=== PATIENT | female | born 1970 | race Caucasian/White ===

== ENCOUNTER 2022-08-19 08:49 | Day surgery (SDC) | payer BC ==
[2022-08-19] MEDS ORDERED: Sodium Chloride 0.9% 10 ML Syringe FLUSH PRN (08:50)
[2022-08-19] MEDS ORDERED: Lactated Ringers 1,000 ML IV SCH (09:00)
[2022-08-19] MEDS ORDERED: Propofol 200 MG/20 ML SDV ONE (09:17)
[2022-08-19] MEDS ORDERED: fentaNYL 100 MCG/2 ML SDV ONE (09:17)
[2022-08-19] MEDS: Citric Acid/Sodium Citrate Solution 30 ML Cup PO ONE (09:40)
[2022-08-19] MEDS ORDERED: Ondansetron 4 MG/2 ML SDV IV PRN (09:57)
[2022-08-19 10:44] VITALS: BP 119/65; PULSE 70
== END 2022-08-19 11:23 | disposition home or self-care (01) ==
LOC: VM.SDS 08:49
PROVIDERS: ATTEND Surgery
DX: K31.7 Polyp of stomach and duodenum (principal); K21.00 Gastro-esophageal reflux disease with esophagitis, without bleeding; K29.50 Unspecified chronic gastritis without bleeding; I51.89 Other ill-defined heart diseases; K31.A0 Gastric intestinal metaplasia, unspecified; R94.5 Abnormal results of liver function studies; Z86.010 Personal history of colon polyps; Z79.899 Other long term (current) drug therapy
CPT/HCPCS: 00731; A9270-GY; J2704; J3010; J7120